=== PATIENT | male | born 1970 | race Caucasian/White ===

== ENCOUNTER 2018-02-06 20:02 | Emergency (ER) | payer BC ==
[2018-02-06] MEDS ORDERED: Alum Hydrox/Mag Hydrox/Simeth 15 ML, Lidocaine 2% 15 ML PO ONE ×2 (20:21)
--- NOTE | 2018-02-06 21:01 | EDM.PDOC ---
ED HPI GENERAL MEDICAL PROBLEM - General Chief Complaint: Chest Pain Stated Complaint: CHEST DISCOMFORT Time Seen by Provider: 02/06/18 20:20 Source of Information: Reports: Patient, Family History Limitations: Reports: No Limitations - History of Present Illness INITIAL COMMENTS - FREE TEXT/NARRATIVE: 39-year-old male with epigastric discomfort for the last 6 hours. He has a burning pain just above the stomach, there is a brief increase in shortness and discomfort when he swallows past the area, or if he takes a deep breath. He has no shortness of breath or radiation of pain. This has been an issue in the past , and he admits he does not eat well and did drink alcohol last evening. Onset: Unknown/Unsure Quality: Reports: Burning Severity: Moderate Worsens with: Reports: Other (Worsens with swallowing food or taking a large breath) Associated Symptoms: Denies: Chest Pain, Fever/Chills, Headaches, Malaise, Nausea/Vomiting, Shortness of Breath epigastric Pain Score (Numeric/FACES): 2 - Related Data Allergies Allergy/AdvReac Type Severity Reaction Status Date / Time No Known Allergies Allergy Verified 01/05/17 07:26 Home Meds: Home Meds Lisinopril/Hydrochlorothiazide [Lisinopril-Hctz 20-12.5 mg Tab] 1 tab PO DAILY 02/06/18 [History] Omeprazole Magnesium [Prilosec Otc] 1 tab PO DAILY PRN 02/06/18 [History] Past Medical History Cardiovascular History: Reports: High Cholesterol, Hypertension Respiratory History: Reports: COPD, Sleep Apnea Gastrointestinal History: Reports: GERD Social & Family History - Tobacco Use Smoking Status *Q: Current Every Day Smoker Years of Tobacco use: 32 Packs/Tins Daily: 1.5 - Caffeine Use Caffeine Use: Reports: Coffee, Soda - Alcohol Use Days Per Week of Alcohol Use: 7 Number of Drinks Per Day: 1 Total Drinks Per Week: 7 - Recreational Drug Use Recreational Drug Use: No ED ROS GENERAL - Review of Systems Review Of Systems: See Below Constitutional: Denies: Fever, Chills, Malaise HEENT: Reports: No Symptoms Respiratory: Denies: Shortness of Breath, Cough GI/Abdominal: Reports: Abdominal Pain. Denies: Nausea : Reports: No Symptoms Musculoskeletal: Reports: No Symptoms Skin: Reports: No Symptoms Neurological: Denies: Headache ED EXAM, GI/ABD - Physical Exam Exam: See Below Exam Limited By: No Limitations General Appearance: Alert, No Apparent Distress Eyes: Bilateral: Normal Appearance Respiratory/Chest: No Respiratory Distress, Lungs Clear Cardiovascular: Regular Rate, Rhythm GI/Abdominal Exam: Soft, Non-Tender Neurological: Alert, Oriented Psychiatric: Normal Affect, Normal Mood Skin Exam: Warm, Dry Course - Vital Signs Last Recorded V/S: Last Vital Signs Temp 97 F 02/06/18 20:08 Pulse 77 02/06/18 21:30 Resp 15 02/06/18 21:30 BP 148/93 H 02/06/18 21:30 Pulse Ox 96 02/06/18 21:30 - Orders/Labs/Meds Labs: Laboratory Tests 02/06/18 02/06/18 Range/Units 20:56 20:56 WBC 7.9 (4.5-11.0) K/uL RBC 4.68 (4.30-5.90) M/uL Hgb 14.7 (12.0-15.0) g/dL Hct 41.6 (40.0-54.0) % MCV 89 (80-98) fL MCH 31 (27-31) pg MCHC 35 (32-36) % Plt Count 245 (150-400) K/uL Neut % (Auto) 53 (36-66) % Lymph % (Auto) 37 (24-44) % [place] % (Auto) 8 H (2-6) % Eos % (Auto) 2 (2-4) % Baso % (Auto) 0 (0-1) % Sodium 138 L (140-148) mmol/L Potassium 3.7 (3.6-5.2) mmol/L Chloride 103 (100-108) mmol/L Carbon Dioxide 27 (21-32) mmol/L Anion Gap 11.7 (5.0-14.0) mmol/L BUN 22 H (7-18) mg/dL Creatinine 0.8 (0.8-1.3) mg/dL Est Cr Clr Drug Dosing 123.94 mL/min Estimated GFR (MDRD) > 60 (>60) Glucose 97 (74-106) mg/dL Calcium 8.8 (8.5-10.1) mg/dL Total Bilirubin 0.6 (0.2-1.0) mg/dL AST 15 (15-37) U/L ALT 28 (12-78) U/L Alkaline Phosphatase 55 (46-116) U/L Troponin I < 0.017 (0.000-0.056) ng/mL Total Protein 7.2 (6.4-8.2) g/dL Albumin 3.8 (3.4-5.0) g/dL Globulin 3.4 (2.3-3.5) g/dL Albumin/Globulin Ratio 1.1 L (1.2-2.2) Lipase 123 (73-393) U/L Meds: Medications Discontinued Medications Generic Name Dose Route Start Last Admin Trade Name Freq PRN Reason Stop Dose Admin Al Hydroxide/Mg Hydroxide 15 0 ml 02/06/18 20:21 02/06/18 20:24 ml/ Lidocaine HCl 15 ml PO 02/06/18 20:22 30 ml ONETIME ONE Administration - Re-Assessments/Exams Free Text/Narrative Re-Assessment/Exam: 02/06/18 21:41 Patient was given a GI cocktail which temporarily helped his symptoms. CBC, CMP , lipase and troponin were then obtained. 02/06/18 22:07 Labs were all reassuring. Discussed treatment options with the patient as well as further evaluation, he elected to take omeprazole on a daily basis for 2-3 weeks to treat presumptive gastritis or esophagitis. If not improving he'll recheck for an EGD. Departure - Departure Time of Disposition: 22:18 Disposition: Home, Self-Care 01 Condition: Good Clinical Impression: Esophagitis, Gastritis - Discharge Information Instructions: Esophagitis Referrals: David Tomas MD [Primary Care Provider] - Forms: ED Department Discharge Care Plan Goals: Omeprazole daily for at least 3 weeks would be beneficial, along with a bland diet for the next several days and avoiding alcohol. Follow-up in the next 7-10 days if not improving satisfactorily to arrange an EGD. Return anytime sooner if worsening or concerns. If improving just continue omeprazole as needed.
== END 2018-02-06 22:18 | disposition home or self-care (01) ==
LOC: JP.ED 20:02
DX: K20.9 Esophagitis, unspecified (principal); K29.70 Gastritis, unspecified, without bleeding; F17.210 Nicotine dependence, cigarettes, uncomplicated; I10 Essential (primary) hypertension; E78.00 Pure hypercholesterolemia, unspecified; J44.9 Chronic obstructive pulmonary disease, unspecified; K21.9 Gastro-esophageal reflux disease without esophagitis; Z79.899 Other long term (current) drug therapy
CPT/HCPCS: 36415; 80053; 83690; 84484; 85025; 99285; A9270

== ENCOUNTER 2019-02-07 06:29 | Day surgery (SDC) | payer BC ==
[2019-02-07] MEDS ORDERED: Midazolam 1 MG/ML 2 ML SDV ONE (07:17)
[2019-02-07] MEDS ORDERED: fentaNYL 100 MCG/2 ML SDV ONE (07:17)
[2019-02-07] MEDS ORDERED: Propofol 200 MG/20 ML SDV ONE (07:17)
[2019-02-07] MEDS ORDERED: Dextrose 5%-Lactated Ringers 1,000 ML IV SCH (07:30)
[2019-02-07] MEDS ORDERED: Glycopyrrolate 0.2 MG/ML 2 ML SDV IVPUSH ONE (08:00)
[2019-02-07] MEDS ORDERED: Pantoprazole 40 MG Vial IVPUSH ONE (08:51)
--- NOTE | 2019-02-14 08:18 | OR ---
DATE OF PROCEDURE: 02/07/2019 SURGEON: Gokul Tavarez MD PREOPERATIVE DIAGNOSIS: Epigastric pain and heartburn. POSTOPERATIVE DIAGNOSIS: 1. 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 2. Diffuse gastritis with focal ulcer in gastric cardia. OPERATIVE PROCEDURE: Esophagogastroduodenoscopy with: 1. Biopsies of antrum for CLOtest. 2. Biopsies of proximal stomach for histologic evaluation. 3. Biopsies of esophagogastric junction for histologic evaluation. ANESTHESIA: IV sedation. INDICATION FOR PROCEDURE: The patient presents with some ongoing epigastric pain and heartburn symptoms. Presently, he is on omeprazole, but this has not had recently adequate symptom control. Plan is to proceed with an upper GI endoscopy with biopsies as indicated. Potential risks including bleeding and perforation were discussed, and the patient wishes to proceed. DETAILS OF PROCEDURE: The patient was taken to the operating room, placed in a left lateral decubitus position. IV sedation was administered, after which the upper GI endoscope was passed orally through the length of the esophagus and into the stomach with retroflexion view of the fundus, and thereafter through the pyloric channel and into the proximal duodenum. Findings included normal hypopharynx, larynx, upper esophageal sphincter, and esophageal body. At the EG junction, small hiatal hernia was present. There was some upward extension of the gastroesophageal junction mucosal line consistent with possible Aranda's esophagus with a small hiatal hernia. The view from the esophagus into the stomach was essentially a wide-open straight tube, indicating the absence of any barrier function at the esophagogastric junction, consistent with the patient's reflux disease. Within the stomach, there is more or less diffuse gastritis with entire gastric mucosa being somewhat reddened. There was one tiny focal ulcer covered with very thin fibrinous exudate in the gastric cardia. Otherwise, the pyloric channel and visualized portions of the duodenum were unremarkable. At this point, biopsies were obtained from the antrum and sent for CLOtest for H. pylori. Multiple biopsies were then obtained in the more proximal stomach around the area of the shallow ulceration and sent for histologic evaluation. Multiple biopsies were then obtained from esophagogastric junction and sent for histologic evaluation as well. Minimal bleeding from the biopsy sites was seen and the procedure was then concluded. At this point, I think more of a full workup would be warranted of his abdominal symptoms. The patient has quite a bit of right-sided symptoms in the postprandial period, and we will obtain a CCK stimulated HIDA scan to rule out biliary dyskinesia. Review of the patient's record shows he has had a CT scan of the abdomen in 2017, which found a hypoechoic lesion in the hepatic lobe, as well as possible hemangioma. At that time, multiphasic CT scan of liver was recommended, which did not appear to have been completed. This will be done, along with CCK stimulated HIDA scan, and we will see the patient back on 02/16/2019. In the interim, we will have him discontinue the omeprazole, give him a trial of Protonix 40 mg a day with Protonix 40 mg IV push to be given in PAR. Gokul Tavarez MD /[id number]
== END 2019-02-07 10:10 | disposition home or self-care (01) ==
LOC: JP.SDS 06:29
PROVIDERS: ATTEND Surgery
DX: K29.70 Gastritis, unspecified, without bleeding (principal); K21.9 Gastro-esophageal reflux disease without esophagitis; K44.9 Diaphragmatic hernia without obstruction or gangrene; K31.89 Other diseases of stomach and duodenum; I10 Essential (primary) hypertension; F17.200 Nicotine dependence, unspecified, uncomplicated
CPT/HCPCS: 43239; 87081; 88305; C9113; J2250; J2704; J3010; J3490; J7042